=== PATIENT | female | born 1940 | race Hispanic/Latino ===

== ENCOUNTER 2024-01-08 09:04 | Day surgery (SDC) | payer OTHER, MEDICARE ==
[2024-01-08] VITALS (12 sets, daily range): BP systolic 109–145; BP diastolic 60–73; PULSE 63–72; RESP 10–20
[2024-01-08] MEDS: 0.9%NACL 1000ML 1,000 ML IV ONE (12:00)
[2024-01-08] MEDS ORDERED: PROPOFOL 10 MG/ML 20ML VIAL IV ONE (12:23)
[2024-01-08] MEDS ORDERED: METO-408 PO (13:08)
[2024-01-08] MEDS ORDERED: LEVO50CA4 PO (13:08)
[2024-01-08] MEDS ORDERED: ATOR40TA71 PO (13:08)
[2024-01-08] MEDS ORDERED: SODI650T PO (13:08)
[2024-01-08] MEDS ORDERED: DOCU100C33 PO (13:08)
[2024-01-08] MEDS ORDERED: FERS325 PO (13:08)
[2024-01-08] MEDS ORDERED: FOLI0.8T53 PO (13:08)
[2024-01-08] MEDS ORDERED: ZINC50TA64 PO (13:08)
[2024-01-08] MEDS ORDERED: AEC81 PO (13:08)
[2024-01-08] MEDS ORDERED: TAMS-1 PO (13:08)
[2024-01-08] MEDS ORDERED: ALLO100T PO (13:08)
[2024-01-08] MEDS ORDERED: AMLO-258 PO (13:08)
[2024-01-08] MEDS ORDERED: LACT1CAP57 PO (13:08)
[2024-01-08] MEDS ORDERED: GABA-529 PO (13:08)
== END 2024-01-08 14:45 | disposition home or self-care (01) ==
LOC: ENDO 09:04 → DAH 09:04 → ENDO 14:45
PROVIDERS: ATTEND Internal Medicine Gastroenterology
DX: R13.10 Dysphagia, unspecified (principal); R10.13 Epigastric pain; R63.4 Abnormal weight loss; I10 Essential (primary) hypertension; R63.30 Feeding difficulties, unspecified; K29.60 Other gastritis without bleeding; K31.A0 Gastric intestinal metaplasia, unspecified; Z79.82 Long term (current) use of aspirin; Z79.899 Other long term (current) drug therapy; Z79.890 Hormone replacement therapy
CPT/HCPCS: 43239; J7030 ×2; J2704; A4620; A4215; A4223; A7002; A4222; A4221; A4663; A4606; J3490

== ENCOUNTER 2024-04-13 00:11 | Emergency (ER) | payer OTHER, MEDICARE ==
[~2024-04-13] VITALS: Ht 170.2 cm; Wt 57.6 kg
[~2024-04-13 00:11] MED LIST: AEC81 PO; ALLO100T PO; AMLO-258 PO; ATOR40TA71 PO; DOCU100C33 PO; FERS325 PO; FOLI0.8T53 PO; GABA-529 PO; LACT1CAP57 PO; LEVO50CA4 PO; METO-408 PO; SODI650T PO; TAMS-1 PO; ZINC50TA64 PO
[2024-04-13 00:13] VITALS: TEMP 97.3
[2024-04-13 01:34] LABS: ADD UA MICROSCOPIC YES; APPEARANCE,URINE CLOUDY (CLEAR); BILIRUBIN,URINE NEGATIVE (NEGATIVE); COLOR,URINE LIGHT-YELLOW (YELLOW); GLUCOSE, URINE (UA) NEGATIVE (NEGATIVE); KETONES,URINE NEGATIVE (NEGATIVE); LEUKOCYTE ESTERASE ,URINE 75 Leu/uL (NEGATIVE); NITRATE,URINE NEGATIVE (NEGATIVE); OCCULT BLOOD,URINE LARGE (NEGATIVE); PH,URINE 5.5 (5.0-8.0); PROTEIN,URINE 30 mg/dL (NEGATIVE); UROBILINOGEN,URINE 0.2 mg/dL (0.2-1.0)
[2024-04-13 01:37] LABS: BACTERIA,URINE MOD /HPF (None Seen); RBC,URINE TNTC /HPF (0-1); WBC,URINE 26-50 /HPF (0-1)
[2024-04-13] MEDS: cefTRIAXone 1G VIAL IVPB ONE (02:04)
[2024-04-13] MEDS ORDERED: LEVO750T68 PO (02:21)
[2024-04-13 02:29] VITALS: BP 155/70; PULSE 82; RESP 18; O2SAT 99
== END 2024-04-13 04:10 ==
LOC: EDH 00:11
DX: R33.8 Other retention of urine (principal); I12.9 Hypertensive chronic kidney disease with stage 1 through stage 4 chronic kidney disease, or unspecified chronic kidney disease; N18.9 Chronic kidney disease, unspecified; M10.9 Gout, unspecified; Z79.82 Long term (current) use of aspirin; Z79.899 Other long term (current) drug therapy
CPT/HCPCS: 99284; 96374; 87086; 81001; 51702; J0696